=== PATIENT | male | born 1970 | race Caucasian/White ===

== ENCOUNTER 2018-05-05 08:47 | Emergency (ER) | payer OTHER ==
[2018-05-05 08:53] VITALS: BP 144/80
--- NOTE | 2018-05-05 10:10 | EDPHY ---
H & P Stated Complaint: COUGH/SOB/ COUGHING UP BLOOD Time Seen by Provider: 05/05/18 09:23 HPI/ROS: CHIEF COMPLAINT: Persistent cough HISTORY OF PRESENT ILLNESS: 47-year-old male with asthma presents with a persistent cough and hemoptysis. Onset a productive cough 1 week ago. He was seen at an outside emergency department and given prescriptions for Zithromax and prednisone. Onset bloody streaks in the sputum last night. No shortness of breath or fever. REVIEW OF SYSTEMS: complete 10 point ROS negative except at noted in the HPI - Personal History Current Tetanus/Diphtheria Vaccine: Yes - Medical/Surgical History Hx Asthma: Yes Hx Chronic Respiratory Disease: No Hx Diabetes: No Hx Cardiac Disease: No Hx Renal Disease: No Hx Cirrhosis: No Hx Alcoholism: No Hx HIV/AIDS: No Hx Splenectomy or Spleen Trauma: No Other PMH: ASTHMA - Social History Smoking Status: Never smoked - Physical Exam Exam: General Appearance: Alert, talkative Eyes: Pupils equal and round, no conjunctival injection ENT, Mouth: Mucous membranes moist Neck: Normal inspection Respiratory: Lungs are clear to auscultation, no wheezing Cardiovascular: Regular rate and rhythm Gastrointestinal: Abdomen is soft and nontender Neurological: A&O, nonfocal, normal gait Skin: Warm and dry, no rash Extremities: Normal inspection Psychiatric: Anxious Constitutional: Initial Vital Signs Temperature (C) 36.9 C 05/05/18 08:50 Heart Rate 90 05/05/18 08:50 Respiratory Rate 18 05/05/18 08:50 Blood Pressure 144/80 H 05/05/18 08:50 O2 Sat (%) 95 05/05/18 08:50 O2 Delivery Mode Room Air Allergies/Adverse Reactions: No Known Allergies Allergy (Unverified 05/05/18 08:48) Home Medications: Medication Instructions Recorded Albuterol 05/05/18 Avapro 150 mg (*) 05/05/18 Azithromycin 05/05/18 Codeine Phosphate/Guaifenesin 10 ml PO HS PRN #4 oz 05/05/18 [Codeine-Guaifen 10-100 mg/5 ml] Prednisone 05/05/18 Qvar 05/05/18 Medical Decision Making - Diagnostics Imaging Results: Imaging Impressions Chest X-Ray 05/05/18 09:23 Impression: No acute findings in the chest. ED Course/Re-evaluation: This patient presents with a persistent cough. Vital signs are normal and he is well-appearing. There is no evidence of bronchospasm on exam. Chest x-ray reveals no evidence of pneumonia. He has mild hemoptysis secondary to acute bronchitis. He has multiple questions and concerns, which I feel that I answered adequately. He declines a nebulized breathing treatment. He will continue taking Zithromax and prednisone. He will follow up with his PCP on Monday. Differential Diagnosis: includes though not limited to severe anemia, pneumonia, PE, coagulopathy, hypoxia, bronchospasm Departure - Departure Disposition: Home, Routine, Self-Care Clinical Impression: Acute bronchitis Qualifiers: Bronchitis organism: other organism Qualified Code(s): J20.8 - Acute bronchitis due to other specified organisms Condition: Good Instructions: Narcotic-Antitussive/Antihistamine/Decongestant (By mouth), Acute Bronchitis (ED) Additional Instructions: Drink plenty of fluids. Take Tylenol every 4 hours as needed for sore throat. Take prednisone as originally prescribed. Finish Zithromax. Return for shortness of breath, coughing up a large amount of blood, persistent vomiting, fever or any concerns. Follow-up with your primary care physician on Monday if you are not improving. Referrals: NONE *PRIMARY CARE P,. [Primary Care Provider] - As per Instructions Prescriptions: Codeine Phosphate/Guaifenesin [Codeine-Guaifen 10-100 mg/5 ml] 10 ml PO HS PRN # 4 oz PRN Reason: cough
== END 2018-05-05 10:20 | disposition home or self-care (01) ==
DX: J20.8 Acute bronchitis due to other specified organisms (principal); J45.909 Unspecified asthma, uncomplicated